=== PATIENT | female | born 1985 ===

== ENCOUNTER 2021-06-25 21:24 | Observation (INO) ==
[2021-06-25] MEDS ORDERED: Isovue-370 500 ML BOTTLE IVP ONE ×2 (22:02→22:09)
[2021-06-25 22:23] LABS: Basophils # 0.1 K/mcL (0.0-0.2); Basophils % 0.8 %; Eosinophils # 0.2 K/mcL (0.0-0.6); Eosinophils % 1.5 %; Hematocrit 42.9 % (35.3-44.9); Hemoglobin 14.5 g/dL (11.5-15.4); Immature Granulocytes % 0.6 % (0-4); Lymphocytes # 4.4 K/mcL (0.6-4.6); Lymphocytes % 27.3 %; Mean Corpuscular HGB Conc 33.8 g/dL (31.6-35.5); Mean Corpuscular Hemoglobin 31.4 pg (28.0-33.3); Mean Corpuscular Volume 92.9 fL (83.0-100.0); Mean Platelet Volume 10.1 fL (9.4-12.4); Monocytes # 0.9 K/mcL (0.0-1.3); Monocytes % 5.8 %; Neutrophils # 10.2 K/mcL (1.6-8.9); Platelet Count 225 K/mcL (140-400); Red Blood Count 4.62 M/mcL (3.82-4.97); Red Cell Distribution Width 11.9 % (11.5-14.5)
[2021-06-25 22:38] LABS: BUN/Creatinine Ratio 15 (6-26); Blood Urea Nitrogen 13 mg/dL (6-20); Calcium 9.3 mg/dL (8.6-10.3); Carbon Dioxide 26 mEq/L (23-29); Chloride 108 mEq/L (98-107); Glucose 78 mg/dL (70-105); Osmolality,Calculated 291 (280-300); Potassium 3.6 mEq/L (3.5-5.1); Sodium 141 mEq/L (136-145); eGFR For African Americans > 60 (> 60); eGFR For Non-African Americans > 60 (> 60)
[2021-06-25 22:39] LABS: Troponin I < 0.03 ng/mL (< 0.04)
[2021-06-26] MEDS ORDERED: Nitroglycerin 0.4 MG TAB.SUBL SL SCH (01:00)
[2021-06-26 01:50] LABS: Amorphous Sediment,Urine Few per hpf (None-Few); Bacteria,Urine Few per hpf (None-Few); Bilirubin,Urine Negative (Negative); Blood,Urine Negative (Negative); Clarity,Urine Turbid (Clear); Color,Urine Yellow (Yellow); Glucose,Urine (UA) Normal (Normal); Hyaline Casts,Urine Few per lpf (None Seen); Ketones,Urine Negative (Negative); Leukocyte Esterase,Urine Negative (Negative); Mucus,Urine Few per lpf (None-Few); Nitrite,Urine Negative (Negative); PH,Urine 6.5 pH Units (5.0-8.0); Protein,Urine Trace mg/dL (Neg-Trace); RBC,Urine 0-3 per hpf (0-3); Specific Gravity,Urine 1.027 (1.010-1.025); Squamous Epithelial Cell,Urine Moderate per hpf (None-Few)
[2021-06-26 02:14] LABS: Amphetamine Screen,Urine Negative ng/mL (Cutoff=1000); Barbiturate Screen,Urine Negative ng/mL (Cutoff=200); Benzodiazepines Screen,Urine Negative ng/mL (Cutoff=200); Cannabinoid Screen,Urine Positive ng/mL (Cutoff = 50); Cocaine Screen,Urine Negative ng/mL (Cutoff= 300); Opiate Screen,Urine Negative ng/mL (Cutoff=300); Phencyclidine Screen,Urine Negative ng/mL (Cutoff=25)
[2021-06-26 02:53] LABS: Adenovirus Not Detected (Not Detect); Coronavirus 229E Not Detected (Not Detect); Coronavirus HKU1 Not Detected (Not Detect); Coronavirus NL63 Not Detected (Not Detect); Coronavirus OC43 Not Detected (Not Detect); Human Metapneumovirus Not Detected (Not Detect); Human Rhinovirus/Enterovirus Not Detected (Not Detect); Influenza A Subtype 2009 H1 Not Detected (Not Detect); SARS-CoV-2 Not Detected (Not Detect)
[2021-06-26 02:54] LABS: Bordetella Pertussis Not Detected (Not Detect); Chlamydophila pneumoniae Not Detected (Not Detect); Influenza B Not Detected (Not Detect); Mycoplasma pneumoniae Not Detected (Not Detect); Parainfluenza Virus 1 Not Detected (Not Detect); Parainfluenza Virus 2 Not Detected (Not Detect); Parainfluenza Virus 3 Not Detected (Not Detect); Parainfluenza Virus 4 Not Detected (Not Detect); Respiratory Syncytial Virus Not Detected (Not Detect)
[2021-06-26] MEDS ORDERED: Naloxone 0.4 MG/ML INJ IVP PRN (03:43)
[2021-06-26] MEDS ORDERED: Ondansetron 4 MG/2 ML VIAL IVP PRN (03:43)
[2021-06-26 04:59] LABS: Hematocrit 40.9 % (35.3-44.9); Hemoglobin 13.9 g/dL (11.5-15.4); Mean Platelet Volume 10.3 fL (9.4-12.4); Platelet Count 218 K/mcL (140-400); Red Blood Count 4.35 M/mcL (3.82-4.97); Red Cell Distribution Width 11.9 % (11.5-14.5); White Blood Count 13.9 K/mcL (4.3-11.1)
[2021-06-26 05:22] LABS: Chol/HDL Ratio 5.8 (0-4.9); Cholesterol 203 mg/dL (< 200); HDL Cholesterol 35 mg/dL (40-59); LDL Cholesterol,Calculated 133 mg/dL (< 100); Triglycerides 175 mg/dL (< 150); Troponin I < 0.03 ng/mL (< 0.04)
[2021-06-26 07:36] VITALS: O2SAT 95
[2021-06-26 08:14] LABS: Estimated Average Glucose 108 mg/dl; Hemoglobin A1C 5.4 %
[2021-06-26] MEDS ORDERED: Regadenoson 0.4 MG/5 ML SYRINGE IVP ONE (08:16)
[2021-06-26 11:06] VITALS: BP 122/80; PULSE 75; TEMP 98
== END 2021-06-26 14:06 | disposition home or self-care (01) ==
LOC: 3ANU 21:24 → EMEROOARM 21:24 → SUATTDRO 06-26 03:03 → 3ANU 06-26 03:44
PROVIDERS: ADMIT Internal Medicine; ATTEND Internal Medicine